=== PATIENT | male | born 1950 | race Caucasian/White ===

== ENCOUNTER → 2020-01-01 | Outpatient (CLI) | payer OTHER ==
[~2020-01-01] MED LIST: ALTACE10 M1 PO; ASPIR 8181 M1 PO; ASPIRIN81 M2 PO; AVELOX 400 MG400 M1 PO; COZAAR 50 MG TA50 M2 PO; FISH OIL 1,0001 EAC5 PO; HUMALOG100 UNIT/1 SQ; IMMUNE GLOBULIN IV; IRON325 PO; LEVAQUIN 500 M500 M2 PO; LEVOTHYROXIN0.075 MG PO; METOCLOPRAMIDE10 MG PO; MULTIVITAMINS1 EAC7 PO; NORCO 10-325 T1 EACH PO; NORCO 5-325 TA1 EACH PO; NORVASC5 MG PO; PEPTO-BISMOL262 M1 PO; PLAVIX 75 MG TA75 MG PO; SYNTHROID175 MCG PO; VITAMIN D3400 UNI1 PO; VYTORIN 10-201 EACH PO; XARELTO10 MG PO; ZOLOFT 50 MG TA50 M1 PO; ZOLOFT50 MG PO
== END ==
LOC: HYPER 12:57
PROVIDERS: ATTEND Emergency Medicine Emergency Medical Services
DX: E11.621 Type 2 diabetes mellitus with foot ulcer (principal); L89.623 Pressure ulcer of left heel, stage 3; L97.422 Non-pressure chronic ulcer of left heel and midfoot with fat layer exposed; L89.613 Pressure ulcer of right heel, stage 3; L97.411 Non-pressure chronic ulcer of right heel and midfoot limited to breakdown of skin; S50.811D Abrasion of right forearm, subsequent encounter; I87.2 Venous insufficiency (chronic) (peripheral); E11.42 Type 2 diabetes mellitus with diabetic polyneuropathy; E78.5 Hyperlipidemia, unspecified; E03.9 Hypothyroidism, unspecified; D64.9 Anemia, unspecified; R41.3 Other amnesia; G30.9 Alzheimer's disease, unspecified; G47.33 Obstructive sleep apnea (adult) (pediatric); I25.10 Atherosclerotic heart disease of native coronary artery without angina pectoris; J45.909 Unspecified asthma, uncomplicated; K21.9 Gastro-esophageal reflux disease without esophagitis; F33.9 Major depressive disorder, recurrent, unspecified; F02.80 Dementia in other diseases classified elsewhere, unspecified severity, without behavioral disturbance, psychotic disturbance, mood disturbance, and anxiety; F17.200 Nicotine dependence, unspecified, uncomplicated; F41.9 Anxiety disorder, unspecified; Z96.60 Presence of unspecified orthopedic joint implant; Z79.4 Long term (current) use of insulin; Z79.82 Long term (current) use of aspirin; W19.XXXA Unspecified fall, initial encounter; Y93.89 Activity, other specified; Y92.89 Other specified places as the place of occurrence of the external cause; Y99.8 Other external cause status

== ENCOUNTER → 2020-01-15 | Outpatient (CLI) | payer OTHER | LOC: HYPER 13:04 | PROVIDERS: ATTEND Emergency Medicine | DX: E11.621 Type 2 diabetes mellitus with foot ulcer (principal); L89.623 Pressure ulcer of left heel, stage 3; L97.421 Non-pressure chronic ulcer of left heel and midfoot limited to breakdown of skin; L89.613 Pressure ulcer of right heel, stage 3; L97.411 Non-pressure chronic ulcer of right heel and midfoot limited to breakdown of skin; S50.811D Abrasion of right forearm, subsequent encounter; D64.9 Anemia, unspecified; E11.42 Type 2 diabetes mellitus with diabetic polyneuropathy; E78.5 Hyperlipidemia, unspecified; E03.9 Hypothyroidism, unspecified; G30.9 Alzheimer's disease, unspecified; G47.33 Obstructive sleep apnea (adult) (pediatric); R41.3 Other amnesia; I87.2 Venous insufficiency (chronic) (peripheral); I25.10 Atherosclerotic heart disease of native coronary artery without angina pectoris; J45.909 Unspecified asthma, uncomplicated; K21.9 Gastro-esophageal reflux disease without esophagitis; F33.9 Major depressive disorder, recurrent, unspecified; F17.200 Nicotine dependence, unspecified, uncomplicated; F02.80 Dementia in other diseases classified elsewhere, unspecified severity, without behavioral disturbance, psychotic disturbance, mood disturbance, and anxiety; F41.9 Anxiety disorder, unspecified; Z79.4 Long term (current) use of insulin; Z79.82 Long term (current) use of aspirin; W19.XXXD Unspecified fall, subsequent encounter ==